=== PATIENT | female | born 1985 | race Caucasian/White ===

== ENCOUNTER 2019-12-18 14:40 | Outpatient (REF) | payer OTHER, SELFPAY | END 2019-12-18 14:41 | disposition home or self-care (01) | LOC: HO.HMGCLDS 14:40 | PROVIDERS: PCP Nurse Practitioner Family; Visit Provider Internal Medicine | DX: Z20.828 Contact with and (suspected) exposure to other viral communicable diseases (principal) | CPT/HCPCS: U0003 ==

== ENCOUNTER 2020-03-30 08:05 | Outpatient (REF) | payer OTHER, SELFPAY ==
[2020-03-30 11:46] LABS: Alanine Aminotransferase 9 U/L (0-31); Albumin Level 4.7 g/dL (3.5-5.0); Alkaline Phosphatase 71 U/L (39-117); Anion Gap 13 (12-20); Aspartate Amino Transferase 16 U/L (5-31); Bilirubin Total 0.5 mg/dL (0.0-1.0); Blood Urea Nitrogen 16 mg/dL (9-16); Calcium 9.3 mg/dL (8.4-10.2); Carbon Dioxide 29 mmol/L (22-29); Chloride 104 mmol/L (96-108); Cholesterol 183 mg/dL; Estimated Glomerular Filt Rate > 60; Glucose Fasting 78 mg/dL (60-99); HDL Cholesterol 75 mg/dL; LDL Cholesterol Calculated 98 mg/dl; Potassium 4.4 mmol/L (3.3-5.1); Sodium 142 mmol/L (135-145); Total Protein 7.1 g/dL (6.5-8.0); Triglycerides 52 mg/dL
[2020-03-30 12:08] LABS: TSH reflex Free T4 1.73 uIU/mL (0.32-4.0)
== END 2020-03-30 08:06 | disposition home or self-care (01) ==
LOC: HO.HMGCLDS 08:05
PROVIDERS: PCP Nurse Practitioner Family; Visit Provider Nurse Practitioner Family
DX: F33.0 Major depressive disorder, recurrent, mild (principal); F41.9 Anxiety disorder, unspecified
CPT/HCPCS: 36415; 80053; 80061; 84443

== ENCOUNTER 2021-01-30 14:18 | Outpatient (REF) | payer OTHER, SELFPAY | END 2021-01-30 14:19 | disposition home or self-care (01) | LOC: HO.LNP 14:18 | PROVIDERS: Visit Provider Hospitalist | DX: Z20.822 Contact with and (suspected) exposure to COVID-19 (principal); R05.9 Cough, unspecified | CPT/HCPCS: U0003; U0005 ==

== ENCOUNTER 2022-04-18 08:04 | Outpatient (REF) | payer OTHER, SELFPAY ==
[2022-04-18 11:01] LABS: MANUAL DIFF FLAG NO
[2022-04-18 11:10] LABS: Appearance Urine Turbid; Color Urine Yellow; Glucose Urine UA Negative (Negative); Leukocyte Esterase Urine Small (1+) (Negative); Nitrite Urine Negative (Negative); PH 5.5 (5.0-9.0); Specific Gravity - Urine 1.025 (1.005-1.025); UMIC TRIGGER UACC YES; Urine Blood Negative (Negative); Urine Ketones Negative (Negative); Urine Protein Negative (Neg-Trace)
[2022-04-18 11:19] LABS: Basophils Percent Auto 0.8 % (0-2); Eosinophils Absolute Auto 0.1 X10*3/uL (0.0-0.4); Eosinophils Percent Auto 1.6 % (0-4); Hematocrit 40.8 % (37.0-47.0); Hemoglobin 13.4 g/dl (12.0-16.0); Imm Gran Abs Auto 0.01 X10*3/uL (0.00-0.03); Imm Gran Pct Auto 0.2 % (0.0-0.4); Lymphocytes Percent Auto 38.3 % (20-40); Mean Corpuscular HGB Conc 32.8 g/dl (31.0-35.0); Mean Corpuscular Hemoglobin 31.1 pg (27.0-33.0); Mean Corpuscular Volume 94.7 fL (80.0-98.0); Mean Platelet Volume 9.7 fL (9.4-12.3); Monocytes Absolute Auto 0.3 X10*3/uL (0.1-1.2); Monocytes Percent Auto 5.4 % (2-11); Neutrophils Absolute Auto 2.8 x10*3/uL (2.0-8.3); Neutrophils Percent Auto 53.7 % (45-73); Platelet Count 344 X10*3/uL (160-400); Red Blood Count 4.31 X10*6/uL (4.20-5.50); Red Cell Distribution Width 12.1 % (11.0-16.0); White Blood Count 5.1 X10*3/uL (4.8-10.8)
[2022-04-18 11:25] LABS: Bacteria Urine 1+ (None Seen); Hyaline Casts Urine 0-2 /LPF (0-2); RBC Urine 0-2 /HPF (0-2); UACC Culture Trigger YES; WBC Urine 0-5 /HPF (0-5)
[2022-04-18 12:40] LABS: Alanine Aminotransferase 16 U/L (0-31); Albumin Level 4.5 g/dL (3.5-5.0); Alkaline Phosphatase 66 U/L (39-117); Anion Gap 12 (12-20); Aspartate Amino Transferase 28 U/L (5-31); Bilirubin Total 0.3 mg/dL (0.0-1.0); Blood Urea Nitrogen 18 mg/dL (9-16); Calcium 9.3 mg/dL (8.4-10.2); Carbon Dioxide 27 mmol/L (22-29); Chloride 107 mmol/L (96-108); Cholesterol 193 mg/dL; Estimated Glomerular Filt Rate > 60; Glucose Fasting 80 mg/dL (60-99); HDL Cholesterol 72 mg/dL; LDL Cholesterol Calculated 113 mg/dl; Potassium 5.4 mmol/L (3.3-5.1); Sodium 141 mmol/L (135-145); Total Protein 6.9 g/dL (6.5-8.0); Triglycerides 44 mg/dL
[2022-04-18 12:42] LABS: TSH reflex Free T4 2.33 uIU/mL (0.32-4.0)
== END 2022-04-18 08:05 | disposition home or self-care (01) ==
LOC: HO.HMGCLDS 08:04
PROVIDERS: PCP Nurse Practitioner Family; Visit Provider Nurse Practitioner Family
DX: F33.0 Major depressive disorder, recurrent, mild (principal); E78.5 Hyperlipidemia, unspecified; R30.0 Dysuria
CPT/HCPCS: 36415; 80053; 80061; 81001; 84443; 85025; 87086

== ENCOUNTER 2022-04-24 14:34 | Outpatient (REF) | payer OTHER, SELFPAY ==
[2022-04-24 16:51] LABS: Appearance Urine Clear; Color Urine Yellow; Glucose Urine UA Negative (Negative); Leukocyte Esterase Urine Trace (Negative); Nitrite Urine Negative (Negative); Specific Gravity - Urine <= 1.005 (1.005-1.025); UMIC TRIGGER UACC YES; Urine Blood Trace (Negative); Urine Ketones Negative (Negative); Urine Protein Negative (Neg-Trace)
[2022-04-24 16:56] LABS: Bacteria Urine None Seen (None Seen); Hyaline Casts Urine 0-2 /LPF (0-2); RBC Urine 0-2 /HPF (0-2); Squamous Epithelial Cell Urine 0-2 /HPF (0-2); WBC Urine 0-5 /HPF (0-5)
[2022-04-24 17:26] LABS: Anion Gap 13 (12-20); Carbon Dioxide 27 mmol/L (22-29); Chloride 105 mmol/L (96-108); Potassium 4.4 mmol/L (3.3-5.1); Sodium 141 mmol/L (135-145)
== END 2022-04-24 14:35 | disposition home or self-care (01) ==
LOC: HO.HMGCLDS 14:34
PROVIDERS: PCP Nurse Practitioner Family; Visit Provider Nurse Practitioner Family
DX: E87.5 Hyperkalemia (principal)
CPT/HCPCS: 36415; 80051; 81001

== ENCOUNTER 2022-05-09 14:09 | Outpatient (REF) | payer OTHER, SELFPAY ==
[2022-05-09 16:42] LABS: Urine Cytology See Pathology rpt
[2022-05-09 16:49] LABS: Appearance Urine Clear; Color Urine Yellow; Glucose Urine UA Negative (Negative); Leukocyte Esterase Urine Negative (Negative); Nitrite Urine Negative (Negative); Specific Gravity - Urine <= 1.005 (1.005-1.025); Urine Blood Negative (Negative); Urine Ketones Negative (Negative); Urine Protein Negative (Neg-Trace)
== END 2022-05-09 14:10 | disposition home or self-care (01) ==
LOC: HO.HMGCLDS 14:09
PROVIDERS: PCP Nurse Practitioner Family; Visit Provider Nurse Practitioner Family
DX: F33.0 Major depressive disorder, recurrent, mild (principal); R31.29 Other microscopic hematuria
CPT/HCPCS: 81003; 87086; 88112

== ENCOUNTER 2023-01-16 10:04 | Outpatient (AMB) | payer OTHER, SELFPAY ==
--- NOTE | 2023-01-16 10:38 | MHC.PC.OV ---
Vital Signs 01/16/23 10:41 Height 5 ft 2 in Weight 136 lb BMI 24.9 BP 110/70 Blood Pressure Location Lt brachial Position Sitting Pulse 66 Pulse Source Pulse Oximeter Pulse Oximetry (%) 99 Oxygen Delivery Method Room Air Intake Visit Reasons: Follow up Anxiety Intake Note: Patient is here for an anxiety follow up. Allergies clarithromycin [From Biaxin] Allergy (Unknown, Verified 01/16/23 10:45) rash sulfamethoxazole [From Bactrim] Allergy (Unknown, Verified 01/16/23 10:45) extremely anxious trimethoprim [From Bactrim] Allergy (Unknown, Verified 01/16/23 10:45) extremely anxious amoxicillin [Augmentin] Adverse Reaction (Unknown, Verified 01/16/23 10:45) yeast infection & dry skin clavulanic acid [Augmentin] Adverse Reaction (Unknown, Verified 01/16/23 10:45) yeast infection & dry skin Sulfa (Sulfonamide Antibiotics) Adverse Reaction (Unknown, Verified 01/16/23 10:45) extremely anxious Tobacco use date assessed: 04/18/22 HPI Follow up Anxiety HPI Details Anxiety: Pt is not currently on any medications due to side effects. She has a therapist who she sees on a regular basis. Pt reports doing well. She uses marijuana intermittently which helps. Denies any SI and HI. Pt further reports snapping at her significant other, sometimes for no reasons. She does find herself very emotional . ? early menopause, which i suggested getting labs ordered by her SHOER (pt reported grandmother went through early menopause). derm referral requested due to fair skin, will refer. ON LICENSE OF [facility] Surgical History Status post osteotomy History of tonsillectomy Family History Father High cholesterol Mother Anxiety Scoliosis Maternal Grandmother Hypoglycemia Stroke Mini stroke Maternal Grandfather Skin cancer Paternal Grandmother Cancer Paternal Grandfather Cancer Diabetes mellitus Social History Housing: Apartment Alcohol intake: current Alcohol intake frequency: a few times a month Patient Tobacco Use Status: Former Tobacco user Quit Date: 2015 e-Cigarette/Vaping Use: Never Used Second Hand Smoke Exposure: No service: No Current occupational status: employed Current occupation: [employer] Current occupational exposures/hazards: No Cognitive needs: No Hearing needs: No Vision needs: No Questionnaire Thrive Questionnaire Date Thrive assessed: 04/18/22 I am a: Patient What is your living situation today?: I have a steady place to live Within the past 12 months, did the food you bought not last and you didn't have the money to get more?: Never true Within the past 12 months, did you worry whether your food would run out before you got money to buy more?: Never true AUDIT C Alcohol Use Questionnaire (AUDIT-C) 1. How often do you have a drink containing alcohol?: 2-4 times a month 2. How many drinks containing alcohol do you have on a typical day when you are drinking?: 1 or 2 3. How often do you have six or more drinks on one occasion?: Never Total Score: 2 CATIE-7 AMB Questionnaire CATIE-7 Date CATIE - 7 assessed: 01/16/23 Feeling nervous, anxious, or on edge: 1 = Several days Not being able to stop or control worryin = Not at all Worrying too much about different things: 1 = Several days Trouble relaxin = Several days Being so restless that it is hard to sit still: 1 = Several days Becoming easily annoyed or irritable: 2 = More than half the days Feeling afraid as if something awful might happen: 0 = Not at all Total CATIE-7 score (0-4 normal; 5-9 mild; 10-14 moderate; 15-21 severe): 6 Source: Developed by Drs. Feliz Alarcon, Aislinn Oh, Carloz Canales and colleagues, with an educational krissy from [email or web address]. CATIE-7 Assessment Billing CATIE-7 Assessment Tool: CATIE-7 Assessment 64462 Review of Systems Const Reports as per HPI Physical exam (Primary Care) Vital Signs: Last Vital Signs Pulse 66 01/16/23 10:41 BP 110/70 01/16/23 10:41 Pulse Ox 99 01/16/23 10:41 Oxygen Delivery Method Room Air 01/16/23 10:41 BMI result Body Mass Index 24.9 Tobacco/Smoking Status: Tobacco use Status Tobacco use date assessed 04/18/22 01/16/23 10:40 Patient Tobacco Use Status Former Tobacco user 11/29/23 10:40 e-Cigarette/Vaping Use Never Used 01/16/23 10:40 Thrive Assessment: Date of Thrive Assessment Date Thrive assessed 04/18/22 01/16/23 10:40 Const General: cooperative Orientation/consciousness: patient oriented x3 Resp Effort & Inspection: normal respiratory effort Auscultation: clear to auscultation bilaterally Cardio Rate: regular rate Rhythm: regular rhythm Heart sounds: S1 normal heart sound present and S2 normal heart sound present Neuro General: patient oriented x3 Psych Appearance: grossly normal Mental Status: mental status grossly normal Speech and movement: Normal speech and movement present Affect: normal affect Attitude: cooperative Thought process: Normal thought process present Thought content: Normal thought content present Insight: Good insight present (Psych) Judgement: Good judgement present (Psych) Assessment and Plan Assessment & Plan (1) Skin exam for malignant neoplasm: Code(s): Z12.83 - Encounter for screening for malignant neoplasm of skin (2) Anxiety: Code(s): F41.9 - Anxiety disorder, unspecified Plan: will cont to monitor, meds did no agree with pt Plan The patient agreed to the use of a medical transport specialist for this encounter. Scribed for ULISES Rodriguez-BC by Anca Zuniga medical transport specialist, on 01/16/2023 at 11:20 EST. Orders: Referrals Dermatology Referral Z12.83 - Encounter for screening for malignant neoplasm of skin Coding Level of Care Code Est Pt Level 3 (66768) Diagnoses Skin exam for malignant neoplasm Z. Anxiety F41.9 Additional Codes CATIE-7 Assessment Billing - CATIE-7 Assessment Tool: CATIE-7 Assessment 70917 ([id number])
[2023-01-16 10:41] VITALS: BP 110/70; PULSE 66; O2SAT 99; BMI 24.9
== END 2023-01-16 12:35 | disposition home or self-care (01) ==
PROVIDERS: PCP Nurse Practitioner Family; Visit Provider Nurse Practitioner Family
DX: F41.9 Anxiety disorder, unspecified (principal); Z12.83 Encounter for screening for malignant neoplasm of skin
CPT/HCPCS: 96127; 99213

== ENCOUNTER 2023-04-23 07:31 | Outpatient (AMB) | payer OTHER, SELFPAY ==
--- NOTE | 2023-04-23 07:41 | MHC.PC.OV ---
Vital Signs 04/23/23 07:43 Height 5 ft 2 in Weight 116 lb BMI 21.2 BP 110/72 Blood Pressure Location Rt brachial Position Sitting Pulse 74 Pulse Source Pulse Oximeter Pulse Oximetry (%) 98 Oxygen Delivery Method Room Air Intake Visit Reasons: Annual PE Intake Note: pt is here for annual exam Laboratory Mechanical Technician Required: No Accompanied by: Self / Same As Patient Allergies clarithromycin [From Biaxin] Allergy (Unknown, Verified 04/23/23 08:18) rash sulfamethoxazole [From Bactrim] Allergy (Unknown, Verified 04/23/23 08:18) extremely anxious trimethoprim [From Bactrim] Allergy (Unknown, Verified 04/23/23 08:18) extremely anxious amoxicillin [Augmentin] Adverse Reaction (Unknown, Verified 04/23/23 08:18) yeast infection & dry skin clavulanic acid [Augmentin] Adverse Reaction (Unknown, Verified 04/23/23 08:18) yeast infection & dry skin Sulfa (Sulfonamide Antibiotics) Adverse Reaction (Unknown, Verified 04/23/23 08:18) extremely anxious Medication List - Last Reconciled 04/23/23 by ZENAIDA Ferro levonorgestrel-ethinyl estrad 0.1-20 mg-mcg (Aviane) 1 tab PO DAILY Tobacco use date assessed: 04/23/23 Dental Screening Dental Screen Date: 04/23/23 Did you have a dental visit in the last 12 months?: Yes Did you have a dental problem in the last 6 months where you did not have access to dental care?: No Was dental information given to patient?: Patient has dentist HPI Annual PE HPI Details Pt is here for a PE. Will order labs. Due for mammo this year, will order. PFSH Surgical History Status post osteotomy History of tonsillectomy Family History Father High cholesterol Mother Anxiety Scoliosis Maternal Grandmother Hypoglycemia Stroke Mini stroke Maternal Grandfather Skin cancer Paternal Grandmother Cancer Paternal Grandfather Cancer Diabetes mellitus Social History Housing: Apartment Alcohol intake: current Alcohol intake frequency: a few times a month Patient Tobacco Use Status: Former Tobacco user Quit Date: 2015 e-Cigarette/Vaping Use: Never Used Second Hand Smoke Exposure: No service: No Current occupational status: employed Current occupation: [employer] Current occupational exposures/hazards: No Cognitive needs: No Hearing needs: No Vision needs: No Questionnaire PHQ-9 Over the last 2 weeks, how often have you been bothered by any of the following problems? 1. Little interest or pleasure in doing things: not at all 2. Feeling down, depressed, or hopeless: several days 3. Trouble falling or staying asleep, or sleeping too much: several days 4. Feeling tired or having little energy: several days 5. Poor appetite or overeating: several days 6. Feeling bad about yourself - or that you are a failure or have let yourself or your family down: not at all 7. Trouble concentrating on things, such as reading the newspaper or watching television: not at all 8. Moving or speaking so slowly that other people could have noticed. Or the opposite - being so fidgety or restless that you have been moving around a lot more than usual: not at all 9. Thoughts that you would be better off or of hurting yourself in some way: not at all Total score: 4 Depression Screening Interpretation: Negative Depression Screening Done: Yes 73227 - PHQ-9 Billing: Yes Source: Developed by Drs. Feliz Alarcon, Aislinn Oh, Carloz Canales and colleagues, with an educational krissy from [employer]. Thrive Questionnaire Date Thrive assessed: 04/23/23 I am a: Patient What is your living situation today?: I have a steady place to live Within the past 12 months, did the food you bought not last and you didn't have the money to get more?: Never true Within the past 12 months, did you worry whether your food would run out before you got money to buy more?: Never true Do you have trouble paying for medicines?: No Do you have trouble getting transportation to medical appointments?: No Do you have trouble paying your heating and electricity bill?: No Do you have trouble taking care of your child, family member or friend?: No Do you have trouble with day-to-day activities such as bathing, preparing meals, shopping, managing finances, etc.?: No Are you currently unemployed and looking for a job?: No Are you interested in more education?: No Please select the resources that you would like help with: None Currently or been in a relationship where the following occur: no concerns reported THRIVE Score: 0 AUDIT C Alcohol Use Questionnaire (AUDIT-C) 1. How often do you have a drink containing alcohol?: 2-4 times a month 2. How many drinks containing alcohol do you have on a typical day when you are drinking?: 1 or 2 3. How often do you have six or more drinks on one occasion?: Never Total Score: 2 Score Reviewed/Action Taken: Yes CATIE-7 AMB Questionnaire CATIE-7 Date CATIE - 7 assessed: 01/16/23 Feeling nervous, anxious, or on edge: 1 = Several days Not being able to stop or control worryin = Several days Worrying too much about different things: 1 = Several days Trouble relaxin = Several days Being so restless that it is hard to sit still: 0 = Not at all Becoming easily annoyed or irritable: 1 = Several days Feeling afraid as if something awful might happen: 0 = Not at all Total CATIE-7 score (0-4 normal; 5-9 mild; 10-14 moderate; 15-21 severe): 5 Source: Developed by Drs. Feliz Alarcon, Aislinn Oh, Carloz Canales and colleagues, with an educational krissy from [employer]. CATIE-7 Assessment Billing CATIE-7 Assessment Tool: CATIE-7 Assessment 48012 Review of Systems Const Denies chills and Denies fever(s) Eyes Denies blurry vision ENT Denies vertigo, Denies dizziness and Denies sore throat Card Denies chest pain at rest, Denies chest pain with activity, Denies diaphoresis, Denies dyspnea and Denies dyspnea on exertion Resp Denies cough, Denies dyspnea, Denies dyspnea on exertion and Denies wheezing GI Denies abdominal pain, Denies melena, Denies hematochezia, Denies constipation, Denies diarrhea and Denies loose stools Denies hematuria Musc Denies numbness and Denies tingling Skin/Breast Denies lesions Neuro Denies vertigo, Denies dizziness, Denies numbness and Denies tingling Psych Denies anxiety, Denies depression, Denies homicidal ideation, Denies suicidal ideation and Denies other (substance abuse) Aller/Immun Denies wheezing Physical exam (Primary Care) Vital Signs: Last Vital Signs Pulse 74 04/23/23 07:43 BP 110/72 04/23/23 07:43 Pulse Ox 98 04/23/23 07:43 Oxygen Delivery Method Room Air 04/23/23 07:43 BMI result Body Mass Index 21.2 Tobacco/Smoking Status: Tobacco use Status Tobacco use date assessed 04/23/23 04/23/23 07:47 Patient Tobacco Use Status Former Tobacco user 04/23/23 07:47 e-Cigarette/Vaping Use Never Used 04/23/23 07:47 PHQ-9: PHQ-9 Score PHQ-9: Total score 4 04/23/23 08:03 Depression Screening Interpretation: Negative Thrive Assessment: Date of Thrive Assessment Date Thrive assessed 04/23/23 04/23/23 08:03 Currently or been in a relationship where the following occur: no concerns reported Const General: cooperative Nutritional Appearance: well nourished Orientation/consciousness: patient oriented x3 HENMT Head: Yes normal to inspection, Yes normocephalic and Yes atraumatic Ears: TM's normal bilaterally Eyes General: appearance normal, both eyes and all related structures Alignment and Position: alignment normal and position normal Neck Neck: Yes normal visual inspection and Yes no lymphadenopathy Thyroid: Thyroid normal Resp Effort & Inspection: normal respiratory effort Auscultation: clear to auscultation bilaterally Cardio Rate: regular rate Rhythm: regular rhythm Heart sounds: S1 normal heart sound present, S2 normal heart sound present and no murmurs GI Palpation (GI): Soft to palpation and nontender Auscultation: normal bowel sounds Skin Rashes: no rashes Neuro General: patient oriented x3, moves all extremities, no focal motor deficits and deep tendon reflexes 2+ bilaterally Romberg Test: Negative Psych Appearance: grossly normal Mental Status: mental status grossly normal Speech and movement: Normal speech and movement present Affect: normal affect Attitude: cooperative Thought process: Normal thought process present Thought content: Normal thought content present Insight: Good insight present (Psych) Judgement: Good judgement present (Psych) Assessment and Plan Assessment & Plan (1) Physical exam: Code(s): Z00.00 - Encounter for general adult medical examination without abnormal findings Plan: Labs ordered Plan The patient agreed to the use of a certified medical assistant for this encounter. Scribed for ZENAIDA Rodriguez by Anca Zuniga certified medical assistant, on 04/23/2023 at 07:55 EST. Orders: Orders MM screening mammo BI Today Z12.31 - Encounter for screening mammogram for malignant neoplasm of breast Complete Blood Count Auto Diff Today Z00.00 - Encounter for general adult medical examination without abnormal findings UA CC w/rflx Micro + Cult Today Z00.00 - Encounter for general adult medical examination without abnormal findings Lipid Panel Today Z00.00 - Encounter for general adult medical examination without abnormal findings Complete Blood Count Auto Diff 11 Months Z00.00 - Encounter for general adult medical examination without abnormal findings Comprehensive [place]. Panel Fast 11 Months Z00.00 - Encounter for general adult medical examination without abnormal findings UA CC w/rflx Micro + Cult 11 Months Z00.00 - Encounter for general adult medical examination without abnormal findings Comprehensive [place]. Panel Fast Today Z00.00 - Encounter for general adult medical examination without abnormal findings TSH reflex Free T4 Today Z00.00 - Encounter for general adult medical examination without abnormal findings TSH reflex Free T4 11 Months Z00.00 - Encounter for general adult medical examination without abnormal findings Lipid Panel 11 Months Z00.00 - Encounter for general adult medical examination without abnormal findings Coding Level of Care Code Est Pt Prev Care 18-39y(26277) Diagnoses Physical exam Z00.00 Additional Codes CATIE-7 Assessment Billing - CATIE-7 Assessment Tool: CATIE-7 Assessment 91744 ([id number])
[2023-04-23 07:43] VITALS: BP 110/72; PULSE 74; O2SAT 98; BMI 21.2
== END 2023-04-23 09:09 | disposition home or self-care (01) ==
PROVIDERS: Visit Provider Nurse Practitioner Family
DX: Z00.00 Encounter for general adult medical examination without abnormal findings (principal)
CPT/HCPCS: 99395

== ENCOUNTER 2023-04-23 08:09 | Outpatient (REF) | payer OTHER, SELFPAY ==
[2023-04-23 11:54] LABS: Appearance Urine Clear; Color Urine Yellow; Glucose Urine UA Negative (Negative); Leukocyte Esterase Urine Small (1+) (Negative); Nitrite Urine Negative (Negative); UMIC TRIGGER UACC YES; Urine Blood Negative (Negative); Urine Ketones Negative (Negative); Urine Protein Negative (Neg-Trace)
[2023-04-23 12:21] LABS: Alanine Aminotransferase 10 U/L (0-31); Albumin Level 4.4 g/dL (3.5-5.0); Alkaline Phosphatase 56 U/L (39-117); Anion Gap 10 (12-20); Aspartate Amino Transferase 16 U/L (5-31); Bilirubin Total 0.2 mg/dL (0.0-1.0); Blood Urea Nitrogen 17 mg/dL (9-16); Calcium 9.2 mg/dL (8.4-10.2); Carbon Dioxide 25 mmol/L (22-29); Chloride 109 mmol/L (96-108); Cholesterol 178 mg/dL (<200); Estimated Glomerular Filt Rate > 60; Glucose Fasting 96 mg/dL (60-99); HDL Cholesterol 71 mg/dL (>40); LDL Cholesterol Calculated 97 mg/dL (<100); Potassium 4.2 mmol/L (3.3-5.1); Sodium 140 mmol/L (135-145); TSH reflex Free T4 2.32 uIU/mL (0.32-4.0); Triglycerides 50 mg/dL (<150)
[2023-04-23 12:27] LABS: Bacteria Urine Trace (None Seen); Hyaline Casts Urine 0-2 /LPF (0-2); RBC Urine 0-2 /HPF (0-2); UACC Culture Trigger YES; WBC Urine 0-5 /HPF (0-5)
[2023-04-23 13:23] LABS: MANUAL DIFF FLAG NO
[2023-04-23 13:33] LABS: Basophils Percent Auto 0.7 % (0-2); Eosinophils Absolute Auto 0.1 X10*3/uL (0.0-0.4); Eosinophils Percent Auto 2.1 % (0-4); Hematocrit 37.4 % (37.0-47.0); Hemoglobin 12.3 g/dl (12.0-16.0); Imm Gran Abs Auto 0.01 X10*3/uL (0.00-0.03); Imm Gran Pct Auto 0.2 % (0.0-0.4); Lymphocytes Absolute Auto 1.9 X10*3/uL (1.2-4.9); Lymphocytes Percent Auto 45.1 % (20-40); Mean Corpuscular HGB Conc 32.9 g/dl (31.0-35.0); Mean Corpuscular Hemoglobin 30.9 pg (27.0-33.0); Mean Platelet Volume 9.9 fL (9.4-12.3); Monocytes Absolute Auto 0.2 X10*3/uL (0.1-1.2); Monocytes Percent Auto 4.9 % (2-11); Platelet Count 321 X10*3/uL (160-400); Red Blood Count 3.98 X10*6/uL (4.20-5.50); Red Cell Distribution Width 12.3 % (11.0-16.0); White Blood Count 4.3 X10*3/uL (4.8-10.8)
== END 2023-04-23 08:10 | disposition home or self-care (01) ==
LOC: HO.HMGCLDS 08:09
PROVIDERS: PCP Nurse Practitioner Family; Visit Provider Nurse Practitioner Family
DX: Z00.00 Encounter for general adult medical examination without abnormal findings (principal); Z13.6 Encounter for screening for cardiovascular disorders; R82.90 Unspecified abnormal findings in urine
CPT/HCPCS: 36415; 80053; 80061; 81001; 84443; 85025; 87086

== ENCOUNTER 2023-08-20 08:12 | Outpatient (AMB) | payer OTHER, SELFPAY ==
--- NOTE | 2023-08-20 07:48 | A.OFFPC_ITS ---
Intake Visit Reasons: anxiety-android Allergies clarithromycin [From Biaxin] Allergy (Unknown, Verified 04/23/23 08:18) rash sulfamethoxazole [From Bactrim] Allergy (Unknown, Verified 04/23/23 08:18) extremely anxious trimethoprim [From Bactrim] Allergy (Unknown, Verified 04/23/23 08:18) extremely anxious amoxicillin [Augmentin] Adverse Reaction (Unknown, Verified 04/23/23 08:18) yeast infection & dry skin clavulanic acid [Augmentin] Adverse Reaction (Unknown, Verified 04/23/23 08:18) yeast infection & dry skin Sulfa (Sulfonamide Antibiotics) Adverse Reaction (Unknown, Verified 04/23/23 08:18) extremely anxious Medication List - Last Reconciled 08/20/23 by ZENAIDA Ferro fluoxetine 10 mg PO DAILY Tobacco use date assessed: 04/23/23 Dental Screening Dental Screen Date: 04/23/23 HPI anxiety-android HPI Details Pt reports ongoing anxiety. She reports waking up in the morning feeling very anxious. Pt also reports mood swings. She reports these symptoms are worse before her period. 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 Pt would like to find a new field crop i farmworker. Will start fluoxetine 10mg (on medication previously, which helped, though became numb on high dose). Will also order field crop i farmworker labs. Denies fever, chills, and dizziness. [facility] Surgical History Status post osteotomy History of tonsillectomy Family History Father High cholesterol Mother Anxiety Scoliosis Maternal Grandmother Hypoglycemia Stroke Mini stroke Maternal Grandfather Skin cancer Paternal Grandmother Cancer Paternal Grandfather Cancer Diabetes mellitus Social History Housing: Apartment Alcohol intake: current Alcohol intake frequency: a few times a month Patient Tobacco Use Status: Former Tobacco user e-Cigarette/Vaping Use: Never Used Second Hand Smoke Exposure: No service: No Current occupational status: employed Current occupation: [employer] Current occupational exposures/hazards: No Cognitive needs: No Hearing needs: No Vision needs: No Questionnaire Thrive Questionnaire Date Thrive assessed: 04/23/23 CATIE-7 AMB Questionnaire CATIE-7 Date CATIE - 7 assessed: 01/16/23 Source: Developed by Drs. Feliz Alarcon, Aislinn Oh, Carloz Canales and colleagues, with an educational krissy from [employer]. Review of Systems Const Reports as per HPI Physical exam (Primary Care) Tobacco/Smoking Status: Tobacco use Status Tobacco use date assessed 04/23/23 08/20/23 07:52 Patient Tobacco Use Status Former Tobacco user 08/20/23 07:52 e-Cigarette/Vaping Use Never Used 08/20/23 07:52 Thrive Assessment: Date of Thrive Assessment Date Thrive assessed 04/23/23 08/20/23 07:52 Const General: cooperative Orientation/consciousness: patient oriented x3 Neuro General: patient oriented x3 Psych Appearance: grossly normal Mental Status: mental status grossly normal Speech and movement: Clear speech present Affect: normal affect Attitude: cooperative Thought process: Normal thought process present Thought content: Normal thought content present Insight: Good insight present (Psych) Judgement: Good judgement present (Psych) Telehealth Telehealth Telehealth Platform: [employer] Location of provider rendering services: practice address Location of patient: address on file Patient Identification confirmed using: Name, : Yes Telehealth method: video Patient verbally consented to treatment: Yes Patient verbally consented to billing insurance company: Yes Patient informed of any privacy concerns related to visit: Yes Minutes spent on Phone/Video with Pt.: 15 Assessment and Plan Assessment & Plan (1) Anxiety: Code(s): F41.9 - Anxiety disorder, unspecified (2) Mood swings: Code(s): R45.86 - Emotional lability Plan: starting fluoxetine 10mg, labs ordered Plan The patient agreed to the use of a biomedical engineering technician for this encounter. Scribed for ZENAIDA Rodriguez by Anca Zuniga biomedical engineering technician, on 08/20/2023 at 07:50 EST. Orders: Orders Complete Blood Count Auto Diff Today F41.9 - Anxiety disorder, unspecified, R45.86 - Emotional lability Comprehensive [place]. Panel Fast Today F41.9 - Anxiety disorder, unspecified, R45.86 - Emotional lability TSH reflex Free T4 Today F41.9 - Anxiety disorder, unspecified, R45.86 - Emotional lability UA CC w/rflx Micro + Cult Today F41.9 - Anxiety disorder, unspecified, R45.86 - Emotional lability Lipid Panel Today F41.9 - Anxiety disorder, unspecified, R45.86 - Emotional lability Prolactin Today R45.86 - Emotional lability Estrogen Today R45.86 - Emotional lability Follicle Stimulating Hormone Today F41.9 - Anxiety disorder, unspecified, R45.86 - Emotional lability Lutenizing Hormone Today F41.9 - Anxiety disorder, unspecified, R45.86 - Emotional lability Medications: New fluoxetine 10 mg PO DAILY 90 tabs 0RF fluoxetine 10 mg PO DAILY 90 tabs 0RF Coding Level of Care Code Tele Est Pt Level 3 (55451) Diagnoses Anxiety F41.9 Mood swings R45.86
== END 2023-08-20 11:44 | disposition home or self-care (01) ==
LOC: HO.HMGC 08:12
PROVIDERS: PCP Nurse Practitioner Family; Visit Provider Nurse Practitioner Family
DX: F41.9 Anxiety disorder, unspecified (principal); R45.86 Emotional lability
CPT/HCPCS: 99213

== ENCOUNTER 2024-05-18 13:37 | Outpatient (AMB) | payer OTHER, SELFPAY ==
[2024-05-18 13:48] VITALS: BP 110/72; PULSE 72; O2SAT 97; BMI 21.0
--- NOTE | 2024-05-18 13:48 | A.OFFPC_ITS ---
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 Accompanied by: Self / Same As Patient Allergies clarithromycin [From Biaxin] Allergy (Unknown, Verified 05/18/24 13:48) rash sulfamethoxazole [From Bactrim] Allergy (Unknown, Verified 05/18/24 13:48) extremely anxious trimethoprim [From Bactrim] Allergy (Unknown, Verified 05/18/24 13:48) extremely anxious amoxicillin [Augmentin] Adverse Reaction (Unknown, Verified 05/18/24 13:48) yeast infection & dry skin clavulanic acid [Augmentin] Adverse Reaction (Unknown, Verified 05/18/24 13:48) yeast infection & dry skin Sulfa (Sulfonamide Antibiotics) Adverse Reaction (Unknown, Verified 05/18/24 13:48) extremely anxious Medication List - Last Reconciled 05/18/24 by ZENAIDA Ferro fluoxetine 10 mg PO DAILY Tobacco use date assessed: 05/18/24 Dental Screening Dental Screen Date: 05/18/24 Did you have a dental visit in the last 12 months?: Yes Did you have a dental problem in the last 6 months where you did not have access to dental care?: No Was dental information given to patient?: Patient has dentist HPI PE HPI Details History of Present Illness The patient is a 38-year-old female presenting for a wellness exam. She reports doing well without any current complaints of fever, chills, chest pain, shortness of breath, abdominal pain, or altered bowel habits, affirming mental health stability with a denial of suicidal or homicidal ideation. She has a history of multiple freckles. One year prior, she consulted dermatology and was advised to return if there were changes in her skin, which she denies at this time. She is planning to see a new screen printing cloth spreader, although no concerns were shared during this visit. Health Maintenance Social History - Upcoming consultation with a new gynec ologist. Review of Systems - Constitutional: Denies fever, chills. - Cardiovascular: Denies chest pain. - Respiratory: Denies shortness of breat h. - Gastrointestinal: Denies abdominal ranjit n, blood in stool, constipation, diarrhea. - Psychiatry: Denies suicidal or homicid al ideation. Physical Exam General: Cooperative, healthy appearing, comfortable, no acute distress and well developed Orientation: Patient oriented x3 Limitations: No limitations Head: Normal to inspection Ears: Hearing grossly normal bilaterally Nose: Normal external nose present Face and sinus: Normal facial exam Eyes: Appearance normal, both eyes and all related structures Neck: Normal visual inspection and Yes full ROM Respiratory: Normal respiratory effort and able to speak in complete sentences. Clear to auscultation bilaterally Cardiovascular: Regular rate and rhythm. Normal S1 and S2 GI: Normal to inspection. Soft to palpation and nontender Skin: Multiple freckles, fair-skinned, no rashes or lesions noted Neuro: Patient oriented x3 Extremities: Normal to inspection Results Plan I have conducted a comprehensive examination and not identified any acute issues. The patient is advised to monitor skin health and return to dermatology if changes occur. Her planned consultation with a new screen printing cloth spreader is acknowledged. Routine health maintenance measures and awareness of symptom changes are encouraged. Discussion Notes I discussed the normal physical findings with the patient, which reassure her current good health status. I provided guidance on monitoring skin changes and recommended returning to dermatology upon noting any changes in her freckles. Furthermore, I acknowledged her upcoming gynecological consultation, advising her to maintain regular health check-ups. Health maintenance strategies and symptom vigilance were emphasized. Patient Instructions - Monitor freckles for any changes and r eport them if noticed. - Follow through with your planned appoi ntment with a new screen printing cloth spreader. - Report any new or concerning symptoms as soon as they arise. - Maintain routine health check-ups and wellness strategies. [facility] Surgical History Status post osteotomy History of tonsillectomy Family History Father High cholesterol Mother Anxiety Scoliosis Maternal Grandmother Hypoglycemia Stroke Mini stroke Maternal Grandfather Skin cancer Paternal Grandmother Cancer Paternal Grandfather Cancer Diabetes mellitus Social History Housing: Apartment Alcohol intake: current Alcohol intake frequency: a few times a month Patient Tobacco Use Status: Former Tobacco user e-Cigarette/Vaping Use: Never Used Second Hand Smoke Exposure: No service: No Current occupational status: employed Current occupation: [employer] Current occupational exposures/hazards: No Cognitive needs: No Hearing needs: No Vision needs: No Questionnaire PHQ-9 Over the last 2 weeks, how often have you been bothered by any of the following problems? 1. Little interest or pleasure in doing things: not at all 2. Feeling down, depressed, or hopeless: not at all 3. Trouble falling or staying asleep, or sleeping too much: not at all 4. Feeling tired or having little energy: not at all 5. Poor appetite or overeating: not at all 6. Feeling bad about yourself - or that you are a failure or have let yourself or your family down: not at all 7. Trouble concentrating on things, such as reading the newspaper or watching television: not at all 8. Moving or speaking so slowly that other people could have noticed. Or the opposite - being so fidgety or restless that you have been moving around a lot more than usual: not at all 9. Thoughts that you would be better off or of hurting yourself in some way: not at all Total score: 0 Depression Screening Interpretation: Negative Depression Screening Done: Yes 71149 - PHQ-9 Billing: Yes Source: Developed by Drs. Feliz Alarcon, Aislinn Oh, Carloz Canales and colleagues, with an educational krissy from [employer]. Thrive Questionnaire Date Thrive assessed: 05/18/24 I am a: Patient What is your living situation today?: I have a steady place to live Within the past 12 months, did the food you bought not last and you didn't have the money to get more?: Never true Within the past 12 months, did you worry whether your food would run out before you got money to buy more?: Never true Do you have trouble paying for medicines?: No Do you have trouble getting transportation to medical appointments?: No Do you have trouble paying your heating and electricity bill?: No Do you have trouble taking care of your child, family member or friend?: No Do you have trouble with day-to-day activities such as bathing, preparing meals, shopping, managing finances, etc.?: No Are you currently unemployed and looking for a job?: Yes Are you interested in more education?: No Please select the resources that you would like help with: None Currently or been in a relationship where the following occur: No concerns reported THRIVE Score: 0 AUDIT C Alcohol Use Questionnaire (AUDIT-C) 1. How often do you have a drink containing alcohol?: 2-4 times a month 2. How many drinks containing alcohol do you have on a typical day when you are drinking?: 1 or 2 3. How often do you have six or more drinks on one occasion?: Never Total Score: 2 Score Reviewed/Action Taken: Yes CATIE-7 AMB Questionnaire CATIE-7 Date CATIE - 7 assessed: 05/18/24 Feeling nervous, anxious, or on edge: 0 = Not at all Not being able to stop or control worryin = Several days Worrying too much about different things: 1 = Several days Trouble relaxin = Several days Being so restless that it is hard to sit still: 1 = Several days Becoming easily annoyed or irritable: 1 = Several days Feeling afraid as if something awful might happen: 0 = Not at all Total CATIE-7 score (0-4 normal; 5-9 mild; 10-14 moderate; 15-21 severe): 5 Source: Developed by Drs. Feliz Alarcon, Aislinn Oh, Carloz Canales and colleagues, with an educational krissy from [employer]. CATIE-7 Assessment Billing CATIE-7 Assessment Tool: CATIE-7 Assessment 78730 Physical exam (Primary Care) Vital Signs: Last Vital Signs Pulse 72 05/18/24 13:48 BP 110/72 05/18/24 13:48 Pulse Ox 97 05/18/24 13:48 Oxygen Delivery Method Room Air 05/18/24 13:48 BMI result Body Mass Index 21.0 Tobacco/Smoking Status: Tobacco use Status Tobacco use date assessed 05/18/24 05/18/24 13:55 Patient Tobacco Use Status Former Tobacco user 05/18/24 13:55 e-Cigarette/Vaping Use Never Used 05/18/24 13:55 PHQ-9: PHQ-9 Score PHQ-9: Total score 0 05/18/24 14:17 Depression Screening Interpretation: Negative Thrive Assessment: Date of Thrive Assessment Date Thrive assessed 05/18/24 05/18/24 13:55 Currently or been in a relationship where the following occur: No concerns reported Coding Level of Care Code Est Pt Prev Care 40-64y(38974) Diagnoses Physical exam Z00.00 Additional Codes CATIE-7 Assessment Billing - CATIE-7 Assessment Tool: CATIE-7 Assessment 84949 ([id number]) PHQ-9 - 93223 - PHQ-9 Billing: Yes ([id number]) Assessment & Plan Assessment & Plan (1) Physical exam: Code(s): Z00.00 - Encounter for general adult medical examination without abnormal findings Category: Medical Plan . Orders: Orders Complete Blood Count Auto Diff Today Z00.00 - Encounter for general adult medical examination without abnormal findings UA CC w/rflx Micro + Cult Today Z00.00 - Encounter for general adult medical examination without abnormal findings Lipid Panel Today Z00.00 - Encounter for general adult medical examination without abnormal findings MM screening mammo BI Today Z12.31 - Encounter for screening mammogram for m alignant neoplasm of breast Comprehensive [place]. Panel Fast Today Z00.00 - Encounter for general adult medical examination without abnormal findings TSH reflex Free T4 Today Z00.00 - Encounter for general adult medical examination without abnormal findings
== END 2024-05-18 14:41 | disposition home or self-care (01) ==
LOC: HO.HMCC 13:38
PROVIDERS: PCP Nurse Practitioner Family; Visit Provider Nurse Practitioner Family
DX: Z00.00 Encounter for general adult medical examination without abnormal findings (principal)

== ENCOUNTER → 2024-05-18 13:37 | Outpatient (BNVA) | payer OTHER, SELFPAY | PROVIDERS: PCP Nurse Practitioner Family; Visit Provider Nurse Practitioner Family | DX: Z00.00 Encounter for general adult medical examination without abnormal findings (principal) | CPT/HCPCS: 96127 ==

== ENCOUNTER 2024-07-09 16:02 | Outpatient (REF) | payer OTHER, SELFPAY | END 2024-07-09 16:03 | disposition home or self-care (01) | LOC: HO.MAMMO 16:02 | PROVIDERS: PCP Nurse Practitioner Family; Visit Provider Nurse Practitioner Family | DX: Z12.31 Encounter for screening mammogram for malignant neoplasm of breast (principal) | CPT/HCPCS: 77063; 77067 ==

== ENCOUNTER → 2024-07-09 16:15 | Outpatient (BNV) | payer OTHER, SELFPAY | PROVIDERS: PCP Nurse Practitioner Family; Visit Provider Internal Medicine | DX: Z12.31 Encounter for screening mammogram for malignant neoplasm of breast (principal) | CPT/HCPCS: 77063; 77067 ==